=== PATIENT | male | born 1990 | race Caucasian/White ===

== ENCOUNTER 2021-07-14 11:09 | Emergency (ER) | payer OTHER ==
[~2021-07-14] VITALS: Ht 190.5 cm; Wt 88.6 kg
[2021-07-14 11:22] VITALS: BP 136/94
[2021-07-14] MEDS ORDERED: ibuprofen tablet 400 MG TABLET PO ONE (11:25)
[2021-07-14] MEDS ORDERED: NAPR-56 PO (12:43)
[2021-07-14] MEDS ORDERED: HYDR-3965 PO (12:43)
== END 2021-07-14 13:53 | disposition home or self-care (01) ==
LOC: ER 11:10
DX: S52.124A Nondisplaced fracture of head of right radius, initial encounter for closed fracture (principal); S62.014A Nondisplaced fracture of distal pole of navicular [scaphoid] bone of right wrist, initial encounter for closed fracture; M25.531 Pain in right wrist; Z79.899 Other long term (current) drug therapy; W19.XXXA Unspecified fall, initial encounter; Y93.89 Activity, other specified; Y92.89 Other specified places as the place of occurrence of the external cause; Y99.8 Other external cause status
CPT/HCPCS: 29105; 29125; 29505; 73080; 73110; 99284